=== PATIENT | male | born 1970 | race Two or more races ===

== ENCOUNTER 2025-01-15 11:16 | Emergency (ER) | payer OTHER ==
[~2025-01-15] VITALS: Ht 177.8 cm; Wt 92.1 kg
[2025-01-15] MEDS ORDERED: GLIMEPIRIDE1 M1 PO (12:26)
[2025-01-15] MEDS ORDERED: COZAAR25 MG PO (12:26)
[2025-01-15] MEDS ORDERED: METFORMIN HCL500 MG (12:26)
[2025-01-15] MEDS ORDERED: CEFTRIAXONE SODIUM 1,000 MG VIAL IM ONE (15:30)
[2025-01-15] MEDS ORDERED: ACETAMINOPHEN 500 MG GEL..CAP PO ONE (15:30)
[2025-01-15] MEDS ORDERED: LIDOCAINE HCL 1%/EPINEPHRINE 10 ML VIAL IJ ONE (15:30)
[2025-01-15] MEDS ORDERED: POVIDONE-IODINE 118 ML BOTT TOP ONE (15:47)
[2025-01-15] MEDS ORDERED: LIDOCAINE HCL 1% 10ML VIAL ONE (15:47)
[2025-01-15] MEDS ORDERED: CEFTRIAXONE SODIUM 1,000 MG VIAL ONE (15:47)
[2025-01-15] MEDS ORDERED: LIDOCAINE HCL 1%/EPINEPHRINE 20ML VIAL IJ ONE (15:50)
== END 2025-01-15 18:43 | disposition home or self-care (01) ==
LOC: ER 11:16
DX: L72.3 Sebaceous cyst (principal); Z91.013 Allergy to seafood; E11.9 Type 2 diabetes mellitus without complications; Z79.84 Long term (current) use of oral hypoglycemic drugs; I10 Essential (primary) hypertension